=== PATIENT | female | born 1935 | race Caucasian/White ===

== ENCOUNTER 2021-01-10 08:03 | Emergency (ER) | payer MEDICARE, SELFPAY ==
[2021-01-10] VITALS (10 sets, daily range): BP systolic 124–150; BP diastolic 69–87; PULSE 62–93; RESP 13–23; TEMP 36.3; O2SAT 94–99
--- NOTE | ~2021-01-10 | XR_ITS ---
XR shoulder RT min 2V DATE: 01/10/2021 08:49 INDICATION: Right shoulder injury from fall. Abrasion to the top of the shoulder. TECHNIQUE: 4 views COMPARISON: None FINDINGS: There is prominent chronic rotator cuff atrophy with the humeral head abutting the undersur face of the acromion process. There is prominent osteoarthritic change at the glenohumeral joint with joint space narrowing and spu rring. There is mild degenerative change at the acromion clavicular joint. Diffuse osteopenia. No fracture, dislocation, periosteal reaction or bone destruction of the right shoulder is detected. 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 RATORY SUPERVISOR
--- NOTE | ~2021-01-10 | XR_ITS ---
XR chest 2V DATE: 01/10/2021 08:49 INDICATION: Weakness. Fall. TECHNIQUE: AP and lateral views COMPARISON: 10/24/2012 AP and lateral chest FINDINGS: Cardiomegaly. Aortic calcification, ectasia, tortuosity. No pulmonary infiltrate or consolidation, pleural effusion or pulmonary venous congestion or pneumoth orax. Diffuse osteopenia. Prominent bilateral chronic rotator cuff atrophy and glenohumeral osteoarthritis. IMPRESSION: Cardiomegaly and aortic atherosclerosis No active pulmonary disease Reviewed, dictated and finalized at location A. TABLE CUTTER
--- NOTE | ~2021-01-10 | CT_ITS ---
EXAMINATION: CT brain wo con DATE: 01/10/2021 08:42 INDICATION: Head injury. TECHNIQUE: Computed tomography (CT) of the head was performed without intravenous contrast. The mA wa s adjusted according to patient size. Iterative reconstruction technique was employed. The dose-lengt h product was 605.33 mGy-cm. COMPARISON: Head CT 10/24/2012 FINDINGS: There are scattered areas of low attenuation in the cerebral white matter. There is no intr acranial hemorrhage, acute infarction, or abnormal intracranial mass lesion. The ventricles are romaine l in size. There is mild mucosal thickening in the paranasal sinuses. There are likely changes of ocu lar lens replacement surgeries. The mastoid air cells are normal. There is right-sided scalp soft tis lucinda swelling. IMPRESSION: 1. Moderate nonspecific cerebral white matter disease, which likely represents chronic small vessel i schemic disease, worsened from 10/24/2012. Reviewed, dictated and finalized at location A. ECT ASST IMPRESSION: 1. Moderate nonspecific cerebral white matter disease, which likely represents chronic small vessel ischemic disease, worsened from 10/24/2012.
--- NOTE | ~2021-01-10 | CT_ITS ---
EXAMINATION: CT cervical spine wo con DATE: 01/10/2021 08:43 INDICATION: Head injury. TECHNIQUE: Computed tomography (CT) of the cervical spine was performed without intravenous contrast. Automated exposure control and iterative reconstruction technique were employed. The dose-length pro duct was 166.18 mGy-cm. COMPARISON: None FINDINGS: There is a 1.9 cm nodule in right thyroid lobe. There is 2 mm retrolisthesis of C3 on C4 an d 2 mm anterolisthesis of C7 on T1. There is a chronic compression fracture of T4 with less than 1/5 loss of height. There is severely decreased disc height from C2-C3 through C6-C7 and mildly decreased disc height at C7-T1. The following disc levels are specifically discussed: C2-C3: There is moderate right and severe left uncovertebral joint osteoarthritis. There is moderate right and severe left facet joint osteoarthritis. There is mild bilateral neural foraminal stenosis. There is no central canal stenosis. C3-C4: There is severe bilateral uncovertebral joint osteoarthritis. There is severe right and modera te left facet joint osteoarthritis. There is mild bilateral neural foraminal stenosis. There is mild central canal stenosis. C4-C5: There is severe bilateral uncovertebral joint osteoarthritis. There is severe bilateral facet joint osteoarthritis. There is mild right and moderate left neural foraminal stenosis. There is mild central canal stenosis. C5-C6: There is severe bilateral uncovertebral joint osteoarthritis. There is severe bilateral facet joint osteoarthritis. There is moderate right and mild left neural foraminal stenosis. There is mild central canal stenosis. C6-C7: There is severe bilateral uncovertebral joint osteoarthritis. There is moderate bilateral face t joint osteoarthritis. There is mild right and moderate left neural foraminal stenosis. There is mil d central canal stenosis. C7-T1: There is no uncovertebral joint osteoarthritis. There is severe bilateral facet joint osteoart hritis. There is mild bilateral neural foraminal stenosis. There is no central canal stenosis. IMPRESSION: 1. No fracture. 2. Severe cervical spondylosis. Reviewed, dictated and finalized at location A. BUILDER
--- NOTE | 2021-01-10 08:13 | ECG_ITS ---
Measurements Intervals [place] Rate: 63 P: TX: 0 QRS: 9 QRSD: 76 T: 20 QT: 416 QTc: 426 Interpretive Statements SINUS RHYTHM WITH MARKED FIRST DEGREE AV BLOCK LOW QRS VOLTAGE IN LIMB LEADS BASELINE ARTIFACT- I, II, III, AVR, AVL, AVF, V1 ABNORMAL ECG Electronically Signed On 01-10-2021 10:27:58 SAUSAGE MIXER by Sean Calix D.O.
--- NOTE | 2021-01-10 08:20 | PC.NURSE ---
Patient placed on bed alarm.
--- NOTE | 2021-01-10 08:21 | PC.NURSE ---
Patient in radiology.
[2021-01-10 08:26] LABS: Basophils Percent Auto 0.4 % (0.2-1.2); Eosinophils Percent Auto 0.3 % (0-4.4); Hematocrit 45.1 % (37.0-47.0); Hemoglobin 15.5 g/dL (12.0-15.0); Immature Granulocyte Absolute 0.02 K/mm3 (0.00-0.031); Immature Granulocyte Percent A 0.2 % (0-0.5); Lymphocytes Absolute Auto 1.53 K/mm3 (0.9-3.2); Lymphocytes Percent Auto 14.9 % (18.3-44.2); Mean Corpuscular HGB Conc 34.4 g/dl (32-36); Mean Corpuscular Hemoglobin 31.4 pg (26-34); Mean Corpuscular Volume 91.5 fl (80-100); Monocytes Absolute Auto 0.5 K/mm3 (0.1-0.6); Monocytes Percent Auto 5.1 % (2.6-8.5); Neutrophils Absolute Auto 8.1 K/mm3 (1.3-6.7); Neutrophils Percent Auto 79.1 % (45.5-73.1); Platelet Count Result 216 k/mm3 (150-375); Red Blood Count 4.93 M/mm3 (4.2-5.4); Red Cell Distribution Width 12.3 % (11.5-14.5); White Blood Count 10.3 K/mm3 (4.5-10.0)
[2021-01-10 08:45] LABS: Alanine Aminotransferase 14 U/L (4-35); Albumin Level 3.7 g/dL (3.5-5.1); Alkaline Phosphatase 79 U/L (38-126); Anion Gap 6 mmol/L (8-16); Aspartate Amino Transferase 24 U/L (14-36); Bilirubin,Total 1.4 mg/dL (0.2-1.3); Blood Urea Nitrogen 10 mg/dL (7-17); Calcium 9.3 mg/dL (8.4-10.2); Carbon Dioxide 25 mmol/L (22-30); Chloride 103 mmol/L (98-107); Estimated Glomerular Filt Rate > 60; Glucose 113 mg/dL (65-110); Potassium 3.4 mmol/L (3.4-5.0); Sodium 134 mmol/L (137-145)
--- NOTE | 2021-01-10 09:11 | PC.NURSE ---
First straight catheter attempt unsuccessful. Patient unable to be redirected during attempt.
[2021-01-10 10:44] LABS: Add Urine Microscopic? YES; Appearance Urine Clear (Clear); Bilirubin Urine Negative (Negative); Blood Urine Negative (Negative); Color Urine Yellow (Yellow); Glucose Urine UA Negative (Negative); Ketones Urine 1+ mg/dL (Negative); Leukocyte Esterase Ur Negative LEU/UL (Negative); Mucus Urine Rare /lpf; Nitrate Urine Negative (Negative); Protein Urine Negative (Negative); RBC Urine 0-2 /hpf (0-2); Squamous Epithelial Cell Urine Rare /hpf (Few); Urobilinogen Urine Negative mg/dL (<2.0); WBC Urine 0-3 /hpf
--- NOTE | 2021-01-10 12:10 | ED.FALL ---
HPI - Fall General Chief Complaint: Fall Stated Complaint: fall - right shoulder, right knee, right foot pain Time Seen by Provider: 01/10/21 08:11 History of Present Illness HPI Narrative: Patient is an 85-year-old female with history of dementia who is oriented x1 that presents ER after being found on the ground at her long term. She has an abrasion to her shoulder and her ear. Unknown loss of consciousness. No blood thinners. Related Data Allergies Allergy/AdvReac Type Severity Reaction Status Date / Time erythromycin base Allergy Unknown Verified 07/23/15 08:52 streptomycin Allergy Unknown Verified 07/23/15 08:52 Sulfa (Sulfonamide Allergy Unknown Verified 07/23/15 08:52 Antibiotics) [facility] Allergy Unknown Uncoded 07/23/15 08:52 Bumble Bee Allergy Unknown Uncoded 07/23/15 08:54 Wasp Allergy Unknown Uncoded 07/23/15 08:54 Review of Systems Review of Systems: ROS unobtainable: Yes unobtainable due to mental status PMFSH Past Medical History Medical History (Updated 01/10/21 @ 12:31 by Shilo Childers MD) Alzheimer's dementia Hypertension Surgical History Surgical History (Updated 01/10/21 @ 12:26 by Shilo Childers MD) History of thyroidectomy Social History Social History (Updated 01/10/21 @ 12:26 by Shilo Childers MD) Smoking status: Never smoker Exam Narrative: GENERAL: Chronically ill-appearing, well-nourished, and in no acute distress. HEAD: Normocephalic, atraumatic. EYES: PERRL and EOMI. ENT: Mucous membranes moist. Small break in skin at the base of the right earlobe not amenable to repair. CHEST: Clear to auscultation. No respiratory distress. HEART: Regular rate and rhythm. Normal peripheral pulses. ABDOMEN: Soft, nontender, nondistended. EXTREMITIES: Normal range of motion. No edema. Abrasion over right shoulder. Normal strength in upper and lower extremities. Walks with guarded gait. SKIN: Warm, dry, no rash. NEURO: Clear speech. Alert and oriented x1. Course Course Emergency Course: Patient ambulate with a guarded gait with nursing staff. Discharge home. Signed informed of results. Vital Signs Vital signs: Vital Signs Respiratory Rate 20 01/10/21 08:16 Temperature 97.4 F L 01/10/21 08:17 Pulse Rate 93 01/10/21 10:31 Respiratory Rate 18 01/10/21 10:31 Blood Pressure 124/69 01/10/21 10:31 Pulse Oximetry 94 01/10/21 10:31 MDM - Fall Lab Data Result diagrams: 01/10/21 08:20 01/10/21 08:20 Labs: Lab Results 01/10/21 01/10/21 01/10/21 Range/Units 08:20 08:20 10:27 WBC 10.3 H (4.5-10.0) K/mm3 RBC 4.93 (4.2-5.4) M/mm3 Hgb 15.5 H (12.0-15.0) g/dL Hct 45.1 (37.0-47.0) % MCV 91.5 (80-100) fl MCH 31.4 (26-34) pg MCHC 34.4 (32-36) g/dl RDW 12.3 (11.5-14.5) % Plt Count 216 (150-375) k/mm3 MPV 10.0 (7.4-10.4) fl Immature Gran % (Auto) 0.2 (0-0.5) % Neut % (Auto) 79.1 H (45.5-73.1) % Lymph % (Auto) 14.9 L (18.3-44.2) % [place] % (Auto) 5.1 (2.6-8.5) % Eos % (Auto) 0.3 (0-4.4) % Baso % (Auto) 0.4 (0.2-1.2) % Lymph # (Auto) 1.53 (0.9-3.2) K/mm3 [place] # (Auto) 0.5 (0.1-0.6) K/mm3 Eos # (Auto) 0.0 (0-0.3) K/mm3 Baso # (Auto) 0.0 (0.0-0.1) K/mm3 Abs Immat Gran (auto) 0.02 (0.00-0.031) K/mm3 Absolute Neuts (auto) 8.1 H (1.3-6.7) K/mm3 Absolute Nucleated RBC 0.0 (0.0-0.012) K/mm3 Nucleated RBC % 0.0 (0.0-0.2) % Sodium 134 L (137-145) mmol/L Potassium 3.4 (3.4-5.0) mmol/L Chloride 103 (98-107) mmol/L Carbon Dioxide 25 (22-30) mmol/L Anion Gap 6 L (8-16) mmol/L BUN 10 (7-17) mg/dL Creatinine 0.50 L (0.7-1.0) mg/dL Estim Creat Clear Calc Not Reportable Estimated GFR > 60 (59 - ) Glucose 113 H (65-110) mg/dL Calcium 9.3 (8.4-10.2) mg/dL Total Bilirubin 1.4 H (0.2-1.3) mg/dL AST 24 (14-36) U/L ALT 14 (4-35)
--- NOTE | 2021-01-10 12:54 | PC.NURSE ---
made contact with [email or web address] and [facility] to transfer pt to [facility] in [place]. both companies declined. contacted [facility] to transfer her home. eta for [facility] is [phone]
== END 2021-01-10 16:15 ==
PROVIDERS: Emergency Provider Emergency Medicine
DX: G30.9 Alzheimer's disease, unspecified (principal); F02.80 Dementia in other diseases classified elsewhere, unspecified severity, without behavioral disturbance, psychotic disturbance, mood disturbance, and anxiety; I10 Essential (primary) hypertension; E89.0 Postprocedural hypothyroidism; R90.82 White matter disease, unspecified; M47.812 Spondylosis without myelopathy or radiculopathy, cervical region; M85.811 Other specified disorders of bone density and structure, right shoulder; I51.7 Cardiomegaly; I70.0 Atherosclerosis of aorta; R94.31 Abnormal electrocardiogram [ECG] [EKG]; W19.XXXA Unspecified fall, initial encounter
CPT/HCPCS: 36415; 51701; 70450; 71046; 72125; 73030; 80053; 81001; 85025; 93005; 99284

== ENCOUNTER 2021-01-15 08:47 | Inpatient (IN) | payer MEDICARE, SELFPAY ==
[2021-01-15] VITALS (32 sets, daily range): BP systolic 93–148; BP diastolic 54–89; PULSE 60–80; RESP 13–30; TEMP 36–36.4; O2SAT 94–100
--- NOTE | ~2021-01-15 | XR_ITS ---
EXAMINATION: XR chest 1V portable EXAM DATE: 01/15/2021 09:35 INDICATION: Syncope, weakness. TECHNIQUE: Portable AP frontal chest x-ray was obtained. Comparison is made to prior examination from 01/10/2021. FINDINGS: The lungs are clear. There are no pleural effusions. Cardiac silhouette is prominent but magnified on this AP technique. There is no pneumothorax suspected. The bones are osteopenic. The re are bony degenerative changes. IMPRESSION: No acute cardiopulmonary findings. Reviewed, dictated and finalized at location A. MANAGEMENT
--- NOTE | ~2021-01-15 | US_ITS ---
EXAMINATION: US carotid duplex BI DATE: 01/15/2021 17:26 INDICATION: Altered mental status TECHNIQUE: Grayscale, color Doppler, and pulsed Doppler images of the cervical carotid arteries were obtained. The degree of vessel stenosis is placed in one of the following categories: normal, <50%, 5 0-69%, >=70% but less than near-occlusion, near-occlusion, or total occlusion. Note that percent sten osis relative to normal distal artery lumen diameter is indirectly measured from velocity measurement s as described by Ilya, et al. Radiology 2003; 229:340-346. Notes: Normal: Peak systolic velocity <125 centimeters/sec and no plaque <50%. Peak systolic velocity <125 ( EDV <40; ICA/CCA PSV ratio <2.0; used these factors only a tandem lesions or low cardiac output or co ntralateral disease) 50-69 %: PSV 125-230 (EDV 40-100; ratio 2-4) >= 70% but less than near occlusion: PSV greater than 230 (EDV > 100; ratio> 4.0) Near Occlusion: PSV that is variable; markedly narrowed lumen Occlusion: Absent flow on color/spectral Doppler and no lumen on cee scale. COMPARISON: None. FINDINGS: RIGHT: The right common carotid artery (CCA) peak systolic velocity (PSV) is 39 cm/s. The right internal car otid artery (ICA) PSV is 31 cm/s. The right ICA end-diastolic velocity (EDV) is 9 cm/s. The right ICA /CCA PSV ratio is 0.8. The external carotid artery (ECA) PSV is 29 cm/s. There is antegrade flow in t he right vertebral artery. LEFT: The left CCA PSV is 43 cm/s. The left ICA PSV is 33 cm/s. The left ICA EDV is 9 cm/s. The left ICA/CC A PSV ratio is 0.8. The ECA PSV is 18 cm/s. There is antegrade flow in the left vertebral artery. IMPRESSION: 1. Less than 50% stenosis in the right internal carotid artery by sonographic criteria. 2. Less than 50% stenosis in the left internal carotid artery by sonographic criteria. Reviewed, dictated and finalized at location A. TOLOGIST IMPRESSION: 1. Less than 50% stenosis in the right internal carotid artery by sonographic matt ramirez. 2. Less than 50% stenosis in the left internal carotid artery by sonographic jade sherman.
--- NOTE | ~2021-01-15 | CT_ITS ---
EXAMINATION: CT brain wo con DATE: 01/15/2021 09:24 INDICATION: Syncope TECHNIQUE: Computed tomography (CT) of the head was performed without intravenous contrast. Sagittal and coronal reconstructions were performed. The mA was adjusted according to patient size. Iterative reconstruction technique was employed. The dose-length product was 681.00 mGy-cm. COMPARISON: head CT dated 01/10/2021 FINDINGS: No acute intracranial hemorrhage, acute infarction or abnormal extra axial fluid collection. There is moderate scattered white matter hypoattenuation consistent with chronic small vessel ischemic diseas e. Symmetric prominence of the sulci and ventricles consistent with moderate age-appropriate diffuse cerebral volume loss. No mass/mass effect. Changes of mucous retention cysts in the left maxillary si nus. intraocular lens replacement. The orbits and mastoid air cells are normal. Intracranial calcifie d cerebral atherosclerosis is noted. IMPRESSION: 1. No acute intracranial process. 2. Age-related changes including moderate diffuse volume loss and moderate scattered white matter hyp oattenuation consistent with chronic small vessel ischemic disease. Reviewed, dictated and finalized at location A. NG MACHINE TENDER IMPRESSION: 1. No acute intracranial process. 2. Age-related changes including moderate diffuse volume loss and moderate scat tered white matter hypoattenuation consistent with chronic small vessel ischemi c disease.
--- NOTE | 2021-01-15 09:06 | ECG_ITS ---
Measurements Intervals [place] Rate: 60 P: -13 [place]: 322 QRS: -20 QRSD: 82 T: 4 QT: 435 QTc: 437 Interpretive Statements SINUS RHYTHM WITH MARKED FIRST DEGREE AV BLOCK EARLY PRECORDIAL R/S TRANSITION BORDERLINE T WAVE ABNORMALITY- INFERIOR LEADS BASELINE ARTIFACT- I, II, III, AVR, AVL, AVF, V2-V6 ABNORMAL ECG Electronically Signed On 01-15-2021 12:02:00 AVIATION SUPPORT EQUIPMENT REPAIRER by Sean Calix D.O.
[2021-01-15] MEDS: SODIUM CHLORIDE 0.9% IV 1,000 ML 999 ML IV CONT (09:12)
--- NOTE | 2021-01-15 09:54 | ED.WEAKNESS ---
HPI - Weakness General Chief complaint: Weakness Stated complaint: SYNCOPE Time Seen by Provider: 01/15/21 08:49 Source: RN notes reviewed History of Present Illness HPI Narrative: Patient presents emergency department from home for possible syncopal episode. Patient has a history of dementia and was in a memory care center she was up in the restroom and going to the sink when she became less responsive at that time she had a 5-minute episode of aphasia as well as decreased debt and budget counselor strength in the bilateral hands per the staff there after 5 minutes the patient came back to her baseline when EMS arrived the patient is back to being ANO x1 which is her normal the patient is unable to give any definitive history of the episode per EMS the patient did not fall to the ground there is no seizure activity that was noted Related Data Home Medications Medication Instructions Recorded Confirmed aspirin 81 mg PO DAILY 01/15/21 lisinopril 01/15/21 primidone 01/15/21 sertraline mg 01/15/21 simvastatin mg 01/15/21 Allergies Allergy/AdvReac Type Severity Reaction Status Date / Time erythromycin base Allergy Unknown Unknown Verified 01/15/21 09:02 streptomycin Allergy Unknown Unknown Verified 01/15/21 09:02 Sulfa (Sulfonamide Allergy Unknown Unknown Verified 01/15/21 09:02 Antibiotics) [facility] Allergy Unknown Unknown Uncoded 01/15/21 09:02 Bumble Bee Allergy Unknown Unknown Uncoded 01/15/21 09:02 Wasp Allergy Unknown Unknown Uncoded 01/15/21 09:02 Review of Systems Review of Systems: Gen.: Denies fevers or chills ENT: Denies congestion Respiratory: Denies shortness of breath or cough CV: Denies chest pain or palpitations GI: Denies abdominal pain nausea, emesis or diarrhea denies burning, urgency, frequency or hematuria Musculoskeletal: Denies back pain or muscle pain Neuro: See HPI Skin: Denies rash Except as documented, all other systems reviewed and negative PMFSH Past Medical History Medical History Alzheimer's dementia Hypertension Surgical History Surgical History (Updated 01/10/21 @ 12:26 by Shilo Childers MD) History of thyroidectomy Social History Social History Smoking status: Never smoker Exam Narrative: APPEARANCE: No acute distress, nontoxic, resting in bed HEENT: Normocephalic, atraumatic, OMM, T EYES: PERRL, EOMI NECK: Supple, nontender, full range of motion without pain, no meningismus RESPIRATORY: No respiratory distress, clear to auscultation bilaterally with no rhonchi wheezing or rales CARDIOVASCULAR: RRR s murmur ABDOMINAL: Soft, nontender, nondistended MUSCULOSKELETAL: Moves all extremities. No clubbing, cyanosis or edema. NEURO: A and O ?1, following commands, speech normal, cranial nerves II through XII grossly intact,muscle strength 5 out of 5 bilateral upper extremities and 4-5 in bilateral lower extremities SKIN:: Warm, dry. Normal Color PSYCHIATRIC: Normal affect/mood Course Course Emergency Course: Discussed with Dr. Sparks presentation work-up agrees with consult request that EEG be ordered at this time will follow as inpatient Discussed with SUNSHINE Avila for Dr Mckeon presentation work-up agrees with admission at this time Discussed with patient and family results of workup and diagnosis. Discussed need for admission. Patient and family understand and agree to current treatment plan Vital Signs Vital signs: Vital Signs Temperature 97.5 F L 01/15/21 08:49 Pulse Rate 62 01/15/21 08:49 Respiratory Rate 16 01/15/21 08:49 Blood Pressure 93/70 L 01/15/21 08:49 Pulse Oximetry 95 01/15/21 08:49 Temperature 97.5 F L 01/15/21 08:49 Pulse Rate 74 01/15/21 12:57 Respiratory Rate 19 01/15/21 12:57 Blood Pressure 103/88 01/15/21 12:57 Pulse Oximetry 100 01/15/21 12:57 MDM - Weakness MDM Narrative Medical decision making n
[2021-01-15 10:32] LABS: Basophils Percent Auto 0.3 % (0.2-1.2); Eosinophils Absolute Auto 0.1 K/mm3 (0-0.3); Hematocrit 39.9 % (37.0-47.0); Hemoglobin 13.3 g/dL (12.0-15.0); Immature Granulocyte Absolute 0.02 K/mm3 (0.00-0.031); Immature Granulocyte Percent A 0.3 % (0-0.5); Lymphocytes Absolute Auto 1.14 K/mm3 (0.9-3.2); Lymphocytes Percent Auto 16.5 % (18.3-44.2); Mean Corpuscular HGB Conc 33.3 g/dl (32-36); Mean Corpuscular Hemoglobin 31.7 pg (26-34); Mean Platelet Volume 10.2 fl (7.4-10.4); Monocytes Absolute Auto 0.3 K/mm3 (0.1-0.6); Monocytes Percent Auto 4.9 % (2.6-8.5); Neutrophils Absolute Auto 5.3 K/mm3 (1.3-6.7); Platelet Count Result 219 k/mm3 (150-375); Red Cell Distribution Width 12.7 % (11.5-14.5); White Blood Count 6.9 K/mm3 (4.5-10.0)
[2021-01-15 10:41] LABS: Prothrombin Time 13.3 Seconds (11.1-14.7)
[2021-01-15 10:47] LABS: Alanine Aminotransferase 14 U/L (4-35); Albumin Level 3.2 g/dL (3.5-5.1); Alkaline Phosphatase 58 U/L (38-126); Anion Gap 5 mmol/L (8-16); Aspartate Amino Transferase 22 U/L (14-36); Bilirubin,Total 1.2 mg/dL (0.2-1.3); Blood Urea Nitrogen 22 mg/dL (7-17); Calcium 8.8 mg/dL (8.4-10.2); Carbon Dioxide 25 mmol/L (22-30); Chloride 108 mmol/L (98-107); Estimated Glomerular Filt Rate > 60; Glucose 100 mg/dL (65-110); Potassium 3.9 mmol/L (3.4-5.0); Sodium 138 mmol/L (137-145)
[2021-01-15 10:58] LABS: Troponin I < 0.012 ng/mL (0.000-0.034)
--- NOTE | 2021-01-15 11:45 | PC.NURSE ---
1143 straight cath. -- got 400 out
[2021-01-15 11:49] LABS: Bilirubin Urine 1+ (Negative); Glucose Urine UA Negative (Negative); Ketones Urine 1+ mg/dL (Negative); Leukocyte Esterase Ur Negative LEU/UL (Negative); Nitrate Urine Negative (Negative); Protein Urine Negative (Negative); Specific Grav Ur >= 1.030 (1.001-1.035); Urobilinogen Urine 0.2 mg/dL (<2.0)
[2021-01-15 12:03] LABS: Add Urine Microscopic? YES; Appearance Urine Sl Cloudy (Clear); Color Urine Dark Yellow (Yellow)
[2021-01-15 12:04] LABS: Blood Urine Trace (Negative); RBC Urine 0-2 /hpf (0-2)
[2021-01-15 12:05] LABS: Mucus Urine Noted /lpf; Squamous Epithelial Cell Urine Few /hpf (Few)
[2021-01-15 12:06] LABS: Bacteria Urine 3+ /hpf
--- NOTE | 2021-01-15 14:20 | ADMGEN ---
This patient, Celia Benavidez, was admitted to 2 Medical Room 245-. Patient/family oriented to hospital policies and general routines including ID bracelet, bed and alarms, visiting hours, pain management, procedures, bathroom and other care routines, personal items, smoking policy, room service/diet, and visiting hours. Information on how to activate the Rapid Response Team has been discussed. Patient/Family are encouraged to report perceived risks to care and to ask questions if they do not understand what they are told or what they should do.
[2021-01-15 14:25] LABS: Troponin I < 0.012 ng/mL (0.000-0.034)
--- NOTE | 2021-01-15 14:55 | WPDNEURCNPN ---
Consult date: 01/15/21 HPI: Celia Benavidez is a 85 year old female has been admitted to the hospital through the emergency room for the complaints of syncopal episodes in addition to ongoing history of dementia for which she has been Memory Care Center. Per the information available as she was in the room going back to the sink when she became less responsive and had a 5 minutes episode of aphasia along with decreased belt buckle maker strength in the both hands but after 5 minutes she came back to her baseline EMS arrived at the scene when she was oriented only x1 which is her normal but she was unable to give any further information. Patient has been taking aspirin, lisinopril, primidone, and sertraline, she does have ongoing history of Alzheimer's dementia and in the past has undergone thyroidectomy, never smoked Review of Systems Review of Systems: All systems reviewed & are unremarkable except as noted in HPI and below PMFSH Past Medical History Medical History Alzheimer's dementia Hypertension Surgical History Surgical History History of thyroidectomy Social History Social History Smoking status: Never smoker Meds Home Medications and Allergies Home Medications Medication Instructions Recorded Confirmed Type aspirin 81 mg PO DAILY 01/15/21 History lisinopril 01/15/21 History primidone 01/15/21 History sertraline mg 01/15/21 History simvastatin mg 01/15/21 History Allergies Allergy/AdvReac Type Severity Reaction Status Date / Time erythromycin base Allergy Unknown Unknown Verified 01/15/21 09:02 streptomycin Allergy Unknown Unknown Verified 01/15/21 09:02 Sulfa (Sulfonamide Allergy Unknown Unknown Verified 01/15/21 09:02 Antibiotics) [facility] Allergy Unknown Unknown Uncoded 01/15/21 09:02 Bumble Bee Allergy Unknown Unknown Uncoded 01/15/21 09:02 Wasp Allergy Unknown Unknown Uncoded 01/15/21 09:02 Vital Signs Vital Signs - 24 hr 01/15/21 08:49 01/15/21 08:59 01/15/21 09:03 Temperature 36.4 C L Pulse Rate 62 62 60 Respiratory Rate 16 Blood Pressure 93/70 L Pulse Oximetry 95 98 01/15/21 09:34 01/15/21 10:15 01/15/21 10:30 Temperature Pulse Rate 61 61 Respiratory Rate 16 16 17 Blood Pressure 131/67 Pulse Oximetry 94 01/15/21 10:32 01/15/21 10:45 01/15/21 11:00 Temperature Pulse Rate 62 63 74 Respiratory Rate 14 15 25 H Blood Pressure Pulse Oximetry 01/15/21 11:01 01/15/21 11:15 01/15/21 11:16 Temperature Pulse Rate 77 70 67 Respiratory Rate 30 H 23 H 21 H Blood Pressure 126/89 Pulse Oximetry 100 01/15/21 11:30 01/15/21 11:31 01/15/21 11:45 Temperature Pulse Rate 77 80 64 Respiratory Rate 23 H 22 H 13 Blood Pressure Pulse Oximetry 99 01/15/21 12:00 01/15/21 12:01 01/15/21 12:15 Temperature Pulse Rate 64 68 69 Respiratory Rate 16 17 16 Blood Pressure 104/54 L Pulse Oximetry 100 100 01/15/21 12:30 01/15/21 12:31 01/15/21 12:45 Temperature Pulse Rate 72 70 68 Respiratory Rate 21 H 13 14 Blood Pressure 103/88 Pulse Oximetry 01/15/21 12:57 01/15/21 13:00 01/15/21 13:01 Temperature Pulse Rate 74 69 69 Respiratory Rate 19 14 Blood Pressure 103/88 113/70 Pulse Oximetry 100 01/15/21 13:15 01/15/21 13:30 01/15/21 13:31 Temperature Pulse Rate 70 67 65 Respiratory Rate 18 19 13 Blood Pressure 115/59 L Pulse Oximetry 01/15/21 13:45 01/15/21 14:33 Temperature 36.3 C L Pulse Rate 65 70 Respiratory Rate 14 20 Blood Pressure 147/69 H Pulse Oximetry 100 Results Labs CBC & Chem 7: 01/15/21 10:23 01/15/21 10:23 Labs: Short CBC 01/15/21 Range/Units 10:23 WBC 6.9 (4.5-10.0) K/mm3 Hgb 13.3 (12.0-15.0) g/dL Hct 39.9 (37.0-47.0) % Plt Count 219 (150-375) k/mm3 BMP
--- NOTE | 2021-01-15 16:06 | PM.IMHP ---
H&P: HPI History of Present Illness Date/Time: 01/15/21 16:06 This is an 85-year-old female patient who is from the memory care unit at [facility]. The patient came to the emergency room from the facility for possible syncopal episode. The patient does have a history dementia and is unable to answer questions for his. Patient is talking incoherently. The patient had a 5 minute episode of aphasia as well as decreased logistics management specialist strength in both of her hands for approximately 5 minutes as per staff. her baseline is A&O x1. The patient is back to her baseline. The patient is moving all extremities without difficulty and is orientated to self. The patient is currently talking about the president but does not know his name. She has no prior history of having any seizure disorder. Head CT was read as no acute intracranial process. Age-related changes including moderate diffuse volume loss and moderate scattered white matter hypoattenuation consistent with chronic small vessel ischemic disease. Neurology has been consulted. Is reported that the patient went to the sink to wash her hands and that is when she became for liberally unresponsive and became weak in both arms. Patient's chest x-ray shows no acute cardiopulmonary findings. Troponins negative x2. Urine bacteria was 3+ with only 4-6 wbc's. The patient was empirically started on ceftriaxone and IV fluids. The ED provider sure and me that this was a straight cath. The patient is being admitted to observation status on the date of service of 01/15/2021. Chief Complaint: ams Review of Systems Review of Systems: All systems reviewed & are unremarkable except as noted in HPI and below Constitutional: Constitutional: Reports as per HPI and Reports no additional constitutional complaints Eyes: Eyes: Reports as per HPI and Reports no additional eye complaints ENT: Reports system reviewed and no additional complaints, except as documented and Reports Normal hearing present Cardiovascular: Cardiovascular: Reports no additional cardiovascular complaints Respiratory: Respiratory: Reports no additional respiratory complaints and Reports no additional respiratory complaints Gastrointestinal: Gastrointestinal: Reports as per HPI and Reports no additional gastrointestinal complaints Musculoskeletal: Musculoskeletal: Reports no additional musculoskeletal complaints Integumentary/Breasts: Skin/Breast: Reports system reviewed and no additional complaints, except as docu and Reports as per HPI Neurologic: Reports system reviewed and no additional complaints, except as documented, Reports as per HPI and Reports Normal hearing present Psychiatric: Psychiatric: Reports no additional psychiatric complaints and Reports as per HPI Endocrine: Endocrine: Reports no additional endocrine complaints Hematologic/Lymphatic: Hematologic/Lymphatic: Reports no additional hematologic/lymphatic complaints Allergic/Immunologic: Allergic/Immunologic: Reports no additional allergic/immunologic complaints [facility] Past Medical History Medical History (Updated 01/15/21 @ 16:26 by Margarita Barber NP) Alzheimer's dementia Hypertension Surgical History Surgical History History of thyroidectomy Family History Family History (Updated 01/15/21 @ 16:19 by Margarita Barber NP) Unknown Family history unknown Social History Social History (Updated 01/15/21 @ 16:20 by Margarita Barber NP) Social History: the patient does have advanced directives on her chart. The patient is from [facility]. The patient is . She is retired and she is listed as a nonsmoker. She has 2 sons Eugene and lawanda ladd listed as her Contact. code status do not resuscitate Smoking status: Never smoker Meds Home Medications and Allergies Home Medications Medication Instructions Recorded Confirmed Type aspirin 81 mg PO DAILY 01/15/21 Histo
[2021-01-15 17:32] LABS: Troponin I < 0.012 ng/mL (0.000-0.034)
[2021-01-15] MEDS: PRIMIDONE 50 MG TABLET PO (21:33)
[2021-01-16] VITALS (13 sets, daily range): BP systolic 104–130; BP diastolic 57–88; PULSE 59–99; RESP 14–20; TEMP 36.2–36.4; O2SAT 98–100; BMI 10.0
[2021-01-16 06:10] LABS: Alanine Aminotransferase 14 U/L (4-35); Albumin Level 3.5 g/dL (3.5-5.1); Alkaline Phosphatase 63 U/L (38-126); Anion Gap 5 mmol/L (8-16); Aspartate Amino Transferase 23 U/L (14-36); Bilirubin,Total 1.3 mg/dL (0.2-1.3); Blood Urea Nitrogen 20 mg/dL (7-17); Carbon Dioxide 23 mmol/L (22-30); Chloride 107 mmol/L (98-107); Estimated Glomerular Filt Rate > 60; Glucose 90 mg/dL (65-110); Lactate Dehydrogenase 452 U/L (313-618); Potassium 3.5 mmol/L (3.4-5.0); Sodium 135 mmol/L (137-145)
[2021-01-16 07:19] LABS: Basophils Percent Auto 0.4 % (0.2-1.2); Eosinophils Absolute Auto 0.2 K/mm3 (0-0.3); Hematocrit 41.4 % (37.0-47.0); Hemoglobin 13.8 g/dL (12.0-15.0); Immature Granulocyte Absolute 0.01 K/mm3 (0.00-0.031); Immature Granulocyte Percent A 0.2 % (0-0.5); Lymphocytes Absolute Auto 1.65 K/mm3 (0.9-3.2); Lymphocytes Percent Auto 32.5 % (18.3-44.2); Mean Corpuscular HGB Conc 33.3 g/dl (32-36); Mean Corpuscular Hemoglobin 31.6 pg (26-34); Mean Corpuscular Volume 94.7 fl (80-100); Mean Platelet Volume 9.9 fl (7.4-10.4); Monocytes Absolute Auto 0.4 K/mm3 (0.1-0.6); Monocytes Percent Auto 7.1 % (2.6-8.5); Neutrophils Absolute Auto 2.9 K/mm3 (1.3-6.7); Neutrophils Percent Auto 56.8 % (45.5-73.1); Platelet Count Result 217 k/mm3 (150-375); Red Blood Count 4.37 M/mm3 (4.2-5.4); Red Cell Distribution Width 12.6 % (11.5-14.5); White Blood Count 5.1 K/mm3 (4.5-10.0)
[2021-01-16 07:31] LABS: Prothrombin Time 12.7 Seconds (11.1-14.7)
[2021-01-16 07:35] LABS: Lactic Acid Reflex 0.8 mmol/L (0.7-2.1)
[2021-01-16] MEDS: ASPIRIN 81 MG CHEWABLE TABLET PO (09:00)
[2021-01-16] MEDS: lisinopriL 2.5 MG TABLET PO (09:00)
[2021-01-16] MEDS: SIMVASTATIN 10 MG TABLET PO (09:00)
[2021-01-16] MEDS: CHOLECALCIFEROL 1,000 UNITS TABLET 1000 UNITS PO (09:00)
[2021-01-16] MEDS: SERTRALINE HCL 50 MG TABLET PO (09:00)
--- NOTE | 2021-01-16 09:09 | PM.IMPN ---
Progress Note: A&P Assessment and Plan (1) Syncope: Code(s): R55 - Syncope and collapse Status: Acute Assessment and Plan: Patient is an 85-year-old woman with a past medical history of dementia, who lives at a memory care facility at [place], who presented to the emergency room after having an unresponsive episode. For approximately 5 minutes, the patient was apparently talking incoherently, having aphasia, decreased train brakeman strength to both of her hands. She was sent to emergency room for further evaluation workup. From what was described in the ER noted does not sound like the patient had a syncopal episode or loss consciousness. Initial vitals showed low blood pressure of 93/70, heart rate 62 beats per minute, afebrile, normal oxygenation on room air. Labs showed normal CBC with slight elevation in neutrophil count 77%. Normal coag panel. Normal creatinine is 0.6, elevated BUN at 22 showing some mild dehydration. Negative troponin x3. Normal LFTs. Urinalysis suspicious for UTI with 4-6 wbc's and 3+ bacteria. Urine culture will be sent. Chest x-ray showed no acute cardiopulmonary findings. CT of the brain showed No acute intracranial process. Age-related changes including moderate diffuse volume loss and moderate scattered white matter hypoattenuation consistent with chronic small vessel ischemic disease. Patient was admitted into the hospital for further evaluation workup for her unresponsive episode. She was started on IV antibiotics for possible UTI, pending urine culture results. Neurology has seen the patient. Will continue the patients daily aspirin. Will order MRI, echo and EEG as recommended by Neurology Carotid Doppler shows less than 50% stenosis bilaterally. Will check orthostatics- Telemetry shows no acute arrhythmia or abnormality other than 1st degree AV block which is benign. Will continue monitoring her mental status and for any similar episodes. (2) UTI (urinary tract infection): Code(s): N39.0 - Urinary tract infection, site not specified Status: Acute Assessment and Plan: Patient was placed on Rocephin due to abnormal UA. UA culture and blood cultures are pending. Continue monitoring (3) Alzheimer's dementia: Code(s): G30.9 - Alzheimer's disease, unspecified; F02.80 - Dementia in other diseases classified elsewhere without behavioral disturbance Status: Chronic Assessment and Plan: Appears to be at her baseline. (4) Hypertension: Code(s): I10 - Essential (primary) hypertension Status: Chronic Assessment and Plan: Blood pressure was low on arrival 93/50. She received 1 L of IV fluid with improvement of blood pressure to 122 systolic. Continue with her lisinopril 2.5 mg Will check orthostatics Continue monitoring make adjustments if necessary Time Spent With Patient Time with patient: 25 - 35 minutes Subjective Date/time seen: 01/16/21 09:09 Interval history: Date of service 01/16/2021: Patient has dementia and is a poor historian. She is alert oriented to self only. She does not answer my questions appropriately and begins talking about other things. History will be provided by chart, documentation and family. Review of Systems Review of Systems: ROS unobtainable: Yes unobtainable due to medical condition Exam Narrative: General: 85-year-old woman sitting up in bed taking a nap. Easily arousable. Appears comfortable. In no acute distress. HEENT: Head is atraumatic, normal cephalic. No tenderness palpation of scalp. Skin: Right shoulder has abrasion noted to anterior/superior aspect. No tenderness to palpation around the area. No jaundice or cyanosis. Good skin turgor. Neck: Full range of motion. Supple.
[2021-01-16] MEDS: PRIMIDONE 50 MG TABLET PO (21:10)
[2021-01-17] VITALS (9 sets, daily range): BP systolic 125–142; BP diastolic 60–94; PULSE 54–67; RESP 16–20; TEMP 36.1–36.3; O2SAT 95–100; BMI 25.1
--- NOTE | 2021-01-17 | ECHO_ITS ---
Patient Info Name: Celia Benavidez Age: 85 years : 1935 Gender: Female Ht: 64 in Wt: 138 lbs BSA: 1.69 m2 HR: 80 bpm BP: 137 / 94 mmHg Technical Quality: Fair Exam Date: 01/17/2021 11:19 AM Exam Location: [facility] Room: [facility] Patient Status: Inpatient Admit Date: 01/16/2021 Staff Ordering Physician: Margarita Barber NP Pharmacy Sales Assistant: Leonora Gan RDCS Attending Provider: Selin Resendez PA-C Referring Physician: Sunil PERALTA; Exam Type: CA echo doppler w bubble study Study Info Indications - ALTERED MENTAL STATUS Complete two-dimensional, color flow and Doppler transthoracic echocardiogram is performed with agitated saline. Contrast/Agitated Saline Contrast/Ag. Saline: Agitated Saline Amount: 20.00 ml Summary 1. Left ventricular systolic function is normal, estimated at 65-70%. 2. The left ventricular diastolic function is grade I diastolic dysfunction. 3. There is mild aortic valve sclerosis. 4. There is mild aortic valve regurgitation. 5. There is mild mitral valve regurgitation. 6. There is mild tricuspid valve regurgitation. 7. Intact interatrial septum visualized by Doppler and agitated saline imaging. Left Ventricle Left ventricular chamber dimension is normal. Left ventricular systolic function is normal, estimated at 65-70%. There is no increased left ventricular wall thickness. Left ventricular septal wall motion is normal. The left ventricular diastolic function is grade I diastolic dysfunction. Right Ventricle Right ventricular chamber dimension is normal. Right ventricular systolic function is normal. Left Atria Left atrial chamber dimension is normal. Right Atria Right atrial chamber dimension is normal. Atrial Septum Intact interatrial septum visualized by Doppler and agitated saline imaging. Aortic Valve The aortic valve is trileaflet. There is mild aortic valve sclerosis. There is no aortic valve stenosis. There is mild aortic valve regurgitation. Pulmonic Valve The pulmonic valve is normal. There is no pulmonic valve stenosis. There is no pulmonic regurgitation. Mitral Valve The mitral valve has normal leaflets. There is no mitral valve stenosis. There is mild mitral valve regurgitation. Tricuspid Valve The tricuspid valve leaflets are normal. There is no significant tricuspid valve stenosis. There is mild tricuspid valve regurgitation. No pulmonary hypertension, estimated pulmonary arterial systolic pressure is 26 mmHg. Pericardium/Pleural The pericardium appears normal. There is no pericardial effusion. Inferior Vena Cava Normal inferior vena cava with >50% collapse upon inspiration consistent with normal right atrial pressure, 5 mmHg. Aorta The aortic root size at the sinus of Valsalva is normal. The prox ascending aorta size is normal. Left Ventricular Outflow Tract Name Value Normal LVOT 2D LVOT Diameter 2.0 cm LVOT Doppler LVOT Peak Gradient 3 mmHg LVOT Mean Gradient 2 mmHg LVOT VTI
[2021-01-17 06:01] LABS: Anion Gap 3 mmol/L (8-16); Blood Urea Nitrogen 22 mg/dL (7-17); Calcium 9.1 mg/dL (8.4-10.2); Carbon Dioxide 29 mmol/L (22-30); Chloride 105 mmol/L (98-107); Estimated Glomerular Filt Rate > 60; Glucose 94 mg/dL (65-110); Potassium 3.3 mmol/L (3.4-5.0); Sodium 137 mmol/L (137-145)
[2021-01-17] MEDS: CHOLECALCIFEROL 1,000 UNITS TABLET 1000 UNITS PO (08:58)
[2021-01-17] MEDS: ASPIRIN 81 MG CHEWABLE TABLET PO (08:58)
[2021-01-17] MEDS: SIMVASTATIN 10 MG TABLET PO (08:58)
[2021-01-17] MEDS: lisinopriL 2.5 MG TABLET PO (08:58)
[2021-01-17] MEDS: SERTRALINE HCL 50 MG TABLET PO (08:59)
--- NOTE | 2021-01-17 11:49 | PM.IMPN ---
Progress Note: A&P Assessment and Plan (1) Syncope: Code(s): R55 - Syncope and collapse Status: Acute Assessment and Plan: Patient is an 85-year-old woman with a past medical history of dementia, who lives at a memory care facility at [place], who presented to the emergency room after having an unresponsive episode. For approximately 5 minutes, the patient was apparently talking incoherently, having aphasia, decreased financial center manager strength to both of her hands. She was sent to emergency room for further evaluation workup. From what was described in the ER noted does not sound like the patient had a syncopal episode or loss consciousness. Initial vitals showed low blood pressure of 93/70, heart rate 62 beats per minute, afebrile, normal oxygenation on room air. Labs showed normal CBC with slight elevation in neutrophil count 77%. Normal coag panel. Normal creatinine is 0.6, elevated BUN at 22 showing some mild dehydration. Negative troponin x3. Normal LFTs. Urinalysis suspicious for UTI with 4-6 wbc's and 3+ bacteria. Urine culture will be sent. Chest x-ray showed no acute cardiopulmonary findings. CT of the brain showed No acute intracranial process. Age-related changes including moderate diffuse volume loss and moderate scattered white matter hypoattenuation consistent with chronic small vessel ischemic disease. Patient was admitted into the hospital for further evaluation workup for her unresponsive episode. She was started on IV antibiotics for possible UTI, pending urine culture results. Neurology has seen the patient and recommends further work up Will continue the patients daily aspirin. Will order MRI, echo and EEG as recommended by Neurology which are all still pending at this time Carotid Doppler shows less than 50% stenosis bilaterally. Orthostatics were normal Telemetry shows no acute arrhythmia or abnormality other than 1st degree AV block which is benign. BP coming in was soft 93/70 which could be from some dehydration causing episode. Will continue monitoring her mental status and for any similar episodes. (2) UTI (urinary tract infection): Code(s): N39.0 - Urinary tract infection, site not specified Status: Acute Assessment and Plan: Patient was placed on Rocephin due to abnormal UA. UA culture and blood cultures are pending. Continue monitoring (3) Alzheimer's dementia: Code(s): G30.9 - Alzheimer's disease, unspecified; F02.80 - Dementia in other diseases classified elsewhere without behavioral disturbance Status: Chronic Assessment and Plan: Appears to be at her baseline. (4) Hypertension: Code(s): I10 - Essential (primary) hypertension Status: Chronic Assessment and Plan: Blood pressure was low on arrival 93/50. She received 1 L of IV fluid with improvement of blood pressure to 122 systolic. Continue with her lisinopril 2.5 mg Continue monitoring make adjustments if necessary Time Spent With Patient Time with patient: 25 - 35 minutes Subjective Date/time seen: 01/17/21 11:49 Interval history: Date of service 01/16/2021: Patient has dementia and is a poor historian. She is alert oriented to self only. She does not answer my questions appropriately and begins talking about other things. History will be provided by chart, documentation and family. Step Son at bedside for history. States she is at her baseline from his evaluation. He feels me in on some medical history and how she has been going downhill the last 1 year in regards to her dementia/Alzheimer's. Review of Systems Review of Systems: ROS unobtainable: Yes unobtainable due to medical condition Exam Narrative: General: 85-year-old woman sitting up in bed talking to her son.
[2021-01-17] MEDS: LORazepam (*CRX) 0.5 MG TABLET PO (12:22)
--- NOTE | 2021-01-17 13:02 | WPDNEUROLOGY ---
Neurology EEG Report General Information Date of Study: 01/17/21 TEST eeg DIAGNOSIS seizures CONDITION OF RECORDING awake drowsy and sleep EEG NUMBER [id number] CLINICAL HISTORY no particular history is available EEG DESCRIPTION background rhythm consists of medium voltage 5 to 7 hertz per 2nd theta admixed with 2 to 3 hertz per 2nd delta activity. Bilateral symmetrical sleep activity seen during deeper stages of sleep. Hyperventilation not done. Photic stimulation not done. Non paroxysmal. Nonfocal. Nonlateralizing. IMPRESSION Abnormal record due to the presence of bihemispheric theta and delta activity. These abnormalities could be consistent with diagnosis of organic a metabolic encephalopathy or postictal state clinical correlation recommended there is no evidence of active seizure going on on this tracing
--- NOTE | 2021-01-17 13:36 | PC.NURSE ---
Patient unable to complete MRI d/t crawling out of machine and pulling at things, unable to be redirected. Notified hospitalist, Luma Resendez.
[2021-01-17] MEDS: POTASSIUM CHLORIDE 20 MEQ PACKET (FOR LIQUID) 40 MEQ PO (13:58)
[2021-01-17] MEDS: ENOXAPARIN 40 MG/0.4 ML SYRINGE SUB-Q (17:10)
[2021-01-17] MEDS: PRIMIDONE 50 MG TABLET PO (20:02)
[2021-01-17] MEDS: levETIRAcetam 250 MG TABLET PO (20:02)
[2021-01-18] VITALS: PULSE 61
[2021-01-18 04:00] VITALS: PULSE 57
[2021-01-18 05:24] VITALS: BP 142/64; PULSE 54; RESP 16; TEMP 36.2; O2SAT 100
[2021-01-18 06:08] LABS: Hematocrit 42.9 % (37.0-47.0); Mean Corpuscular HGB Conc 32.6 g/dl (32-36); Mean Corpuscular Hemoglobin 31.4 pg (26-34); Mean Corpuscular Volume 96.2 fl (80-100); Mean Platelet Volume 10.8 fl (7.4-10.4); Platelet Count Result 199 k/mm3 (150-375); Red Blood Count 4.46 M/mm3 (4.2-5.4); Red Cell Distribution Width 12.4 % (11.5-14.5); White Blood Count 4.8 K/mm3 (4.5-10.0)
[2021-01-18 06:32] LABS: Anion Gap 4 mmol/L (8-16); Blood Urea Nitrogen 21 mg/dL (7-17); Calcium 9.4 mg/dL (8.4-10.2); Carbon Dioxide 30 mmol/L (22-30); Chloride 106 mmol/L (98-107); Estimated CRCL calculation 60 ml/min; Estimated Glomerular Filt Rate > 60; Glucose 84 mg/dL (65-110); Magnesium 2.1 mg/dL (1.6-2.3); Potassium 3.7 mmol/L (3.4-5.0); Sodium 140 mmol/L (137-145)
[2021-01-18 08:00] VITALS: PULSE 54
[2021-01-18] MEDS: SERTRALINE HCL 50 MG TABLET PO (09:37)
[2021-01-18] MEDS: ASPIRIN 81 MG CHEWABLE TABLET PO (09:37)
[2021-01-18] MEDS: levETIRAcetam 250 MG TABLET PO (09:37)
[2021-01-18] MEDS: SIMVASTATIN 10 MG TABLET PO (09:37)
[2021-01-18] MEDS: ENOXAPARIN 40 MG/0.4 ML SYRINGE SUB-Q (09:37)
[2021-01-18] MEDS: lisinopriL 2.5 MG TABLET PO (09:37)
[2021-01-18] MEDS: CHOLECALCIFEROL 1,000 UNITS TABLET 1000 UNITS PO (09:37)
--- NOTE | 2021-01-18 09:40 | PM.DS ---
DS: Admitting Diagnosis Discharge Date 01/18/21 Admitting Diagnosis Unresponsive episode DS: Discharge Diagnosis Discharge Diagnosis (1) Syncope: Code(s): R55 - Syncope and collapse Status: Acute Assessment and Plan: Patient is an 85-year-old woman with a past medical history of dementia, who lives at a memory care facility at [place], who presented to the emergency room after having an unresponsive episode. For approximately 5 minutes, the patient was apparently talking incoherently, having aphasia, decreased paralegal internship strength to both of her hands. She was sent to emergency room for further evaluation workup. From what was described in the ER noted does not sound like the patient had a syncopal episode or loss consciousness. Initial vitals showed low blood pressure of 93/70, heart rate 62 beats per minute, afebrile, normal oxygenation on room air. Labs showed normal CBC with slight elevation in neutrophil count 77%. Normal coag panel. Normal creatinine is 0.6, elevated BUN at 22 showing some mild dehydration. Negative troponin x3. Normal LFTs. Urinalysis suspicious for UTI with 4-6 wbc's and 3+ bacteria. Urine culture will be sent. Chest x-ray showed no acute cardiopulmonary findings. CT of the brain showed No acute intracranial process. Age-related changes including moderate diffuse volume loss and moderate scattered white matter hypoattenuation consistent with chronic small vessel ischemic disease. Patient was admitted into the hospital for further evaluation workup for her unresponsive episode. She was started on IV antibiotics for possible UTI, pending urine culture results. Neurology has seen the patient and read her EEG which showed Abnormal record due to the presence of bihemispheric theta and delta activity. These abnormalities could be consistent with diagnosis of organic a metabolic encephalopathy or postictal state clinical correlation recommended there is no evidence of active seizure going on on this tracing. Dr. Sparks Recommended starting Keppra 250 mg Q12hrs for seizure prevention. Will continue the patients daily aspirin. MRI was unable to be completed due to patients dementia/confusion. Echo showing Left ventricular systolic function is normal, estimated at 65-70%.. The left ventricular diastolic function is grade I diastolic dysfunction. There is mild aortic valve sclerosis. There is mild aortic valve regurgitation. There is mild mitral valve regurgitation. There is mild tricuspid valve regurgitation. Intact interatrial septum visualized by Doppler and agitated saline Carotid Doppler shows less than 50% stenosis bilaterally. Orthostatics were normal Telemetry shows no acute arrhythmia or abnormality other than 1st degree AV block which is benign and pauses less than 2 seconds. BP coming in was soft 93/70 which could be from some dehydration causing episode. Recommended family to keep her hydrated as much as possible. Will continue PO antibiotics for UTI. Stable for discharge back to memory care facility, discussed with son Eugene. He understands and agrees with the plan. Return to ER warnings given. Follow up instructions given. All questions answered. (2) UTI (urinary tract infection): Code(s): N39.0 - Urinary tract infection, site not specified Status: Acute Assessment and Plan: Patients urine culture growing >100K Aerococcus urinae which is usually susceptable to most antibiotics for uncomplicated UTIs Continue Cefdinir for total treatment of 7 days (3) Alzheimer's dementia: Code(s): G30.9 - Alzheimer's disease, unspecified; F02.80 - Dementia in other diseases classified elsewhere without behavioral disturbance Status: Chronic Assessment and Plan: Appears to be at her baseline. (4) Hypertension: Code(
[2021-01-18 12:00] VITALS: PULSE 66
[2021-01-18 12:47] LABS: EDCOVIDSCREEN Negative (Negative)
[2021-01-18 13:20] VITALS: BP 112/62; PULSE 67; RESP 20; TEMP 36.1; O2SAT 97
--- NOTE | 2021-01-18 14:41 | PC.NURSE ---
report called to [facility] at [facility]. Ambulance ETA [id number]
== END 2021-01-18 15:10 | DRG 689 ==
LOC: ANHED 09:10 → ANH2MED 12:47
PROVIDERS: Nurse Practitioner; Physician Assistant; Admitting Provider Internal Medicine; Emergency Provider Emergency Medicine; PCP Family Medicine; Visit Provider Family Medicine
DX: N39.0 Urinary tract infection, site not specified (principal); G93.41 Metabolic encephalopathy; B96.89 Other specified bacterial agents as the cause of diseases classified elsewhere; R55 Syncope and collapse; E86.0 Dehydration; G30.9 Alzheimer's disease, unspecified; F02.80 Dementia in other diseases classified elsewhere, unspecified severity, without behavioral disturbance, psychotic disturbance, mood disturbance, and anxiety; I10 Essential (primary) hypertension; R40.4 Transient alteration of awareness; Z20.822 Contact with and (suspected) exposure to COVID-19
CPT/HCPCS: 36415; 51701; 70450; 71045; 80048; 80053; 81001; 83605; 83615; 83735; 84484; 85025; 85027; 85610; 85730; 87077; 87086; 87088; 87426; 93005; 93306; 93880; 95816; 96361; 96365; 96375; 97110; 97116; 97161; 97166; 97530; 99285; A9270; C9803; G0378; J0696; J1650; J7030